=== PATIENT | male | born 1980 | race Hispanic/Latino ===

== ENCOUNTER 2017-09-11 08:59 | Emergency (ER) | payer SELFPAY ==
[2017-09-11] MEDS ORDERED: Lidocaine 1% PF 5 ML VIAL ONE (11:55)
[2017-09-11] MEDS ORDERED: Bacitracin Zinc 1 Packet ONE (12:17)
[2017-09-11] MEDS ORDERED: Adacel (T-DAP) 0.5 ML VIAL ONE (12:19)
== END 2017-09-11 13:42 | disposition home or self-care (01) ==
LOC: ERS 08:59
DX: T19.4XXA Foreign body in penis, initial encounter (principal); N48.21 Abscess of corpus cavernosum and penis; F17.210 Nicotine dependence, cigarettes, uncomplicated
CPT/HCPCS: 10060; 10120; 90715; J2001